=== PATIENT | female | born 1985 | race American Indian/Alaskan Native ===

== ENCOUNTER 2018-06-10 12:12 | Emergency (ER) | payer MEDICAID, OTHER ==
--- NOTE | 2018-06-10 13:10 | Emergency Department Report ---
ED Dysuria HPI - HPI Chief Complaint: Urogenital-Female Stated Complaint: WHEEZING,RUNNING EYES/NOSE Time Seen by Provider: 06/10/18 12:53 Duration: 1 Day Severity: Mild Symptoms: Dysuria: Yes, Frequency: No, Suprapubic Pain: No, Flank Pain: No, Fever: No, Hematuria: No, Abdominal Pain: No, Previous UTI's: Yes ED Review of Systems ROS: Stated complaint: WHEEZING,RUNNING EYES/NOSE Other details as noted in HPI Comment: All other systems reviewed and negative Constitutional: denies: chills, fever Eyes: denies: eye pain ENT: denies: ear pain Respiratory: denies: cough, orthopnea Cardiovascular: denies: dyspnea on exertion, orthopnea Endocrine: no symptoms reported Gastrointestinal: denies: abdominal pain, nausea, vomiting, diarrhea, constipation, hematemesis, melena Genitourinary: dysuria. denies: urgency, frequency, hematuria, discharge Musculoskeletal: denies: back pain Skin: denies: rash, lesions Neurological: denies: headache, weakness Psychiatric: denies: anxiety, depression Hematological/Lymphatic: denies: easy bleeding ED Past Medical Hx - Past Medical History Previous Medical History?: No Hx Hypertension: Yes Hx Kidney Stones: Yes Additional medical history: Childbirth - Surgical History Past Surgical History?: Yes Hx Cholecystectomy: Yes Additional Surgical History: Kidney stones removed. - Social History Smoking Status: Never Smoker - Medications Home Medications: Home Medications Medication Instructions Recorded Confirmed Last Taken Type Fluconazole [Diflucan] 150 mg PO ONCE #1 tablet 06/10/18 Unknown Rx Nitrofurantoin Monohyd/M-Cryst 100 mg PO BID #10 capsule 06/10/18 Unknown Rx [Macrobid 100 mg Capsule] Dysuria Exam - Exam General: Vital signs noted. No distress. Alert and acting appropriately. Exam: Yes Moist Mucous Membranes, No CVA Tenderness, No Abdominal Tenderness, No Rigidity or Guarding Exam: NO FEVER. TAKING PO. NO ABD PAIN. NO CVA TENDERNESS. NON TOXIC. NOT CONCERNED FOR STI. HR ON EXAM 100. PMH. OBESE. UTI ED Course Vital Signs 06/10/18 12:23 Temperature 98.2 F Pulse Rate 122 H Respiratory 18 Rate Blood Pressure 107/89 O2 Sat by Pulse 100 Oximetry - Reevaluation(s) Reevaluation #1: 09/29/18 14:21 TO ER W DYSURIA LMP 9-10 NOT CONCERNED ABOUT STD NO CVA TENDERNESS NO FEVER NO ABD PAIN U PREG NEG UA NOTED ROCEPHIN 1 GM IM DISCUSSED W PT SHE WILL NEED TO BE SURE THIS UTI CLEARS UP- NOT AND [place] SHE WILL FOLLOW UP WITH PCP. ED Medical Decision Making - Medical Decision Making UA NON TOXIC NO FEVER HR 100 ON EXAM NOT CONCERNED FOR STI - Differential Diagnosis RO UTI Critical care attestation.: If time is entered above; I have spent that time in minutes in the direct care of this critically ill patient, excluding procedure time. ED Disposition Clinical Impression: Urinary tract infection Disposition: TO HOME OR SELFCARE Is pt being admited?: No Does the pt Need Aspirin: No Condition: Stable Additional Instructions: DIET TOLERATED ACTIVITY TOLERATED HYDRATE WELL MOTRIN OR TYLENOL FOR PAIN OR FEVER FOLLOW UP WITH PCP WATER WATER WATER URINATE AFTER SEX NO BATHS Prescriptions: Fluconazole [Diflucan] 150 mg PO ONCE #1 tablet Nitrofurantoin Monohyd/M-Cryst [Macrobid 100 mg Capsule] 100 mg PO BID #10 capsule Referrals: PRIMARY CARE, [Primary Care Provider] - 3-5 Days Time of Disposition: 14:18
[2018-06-10 14:07] LABS: Bacteria,Urine 4+ /HPF (Negative); Bilirubin,Urine NEG (Negative); Blood,Urine SM (Negative); Color,Urine Yellow (Yellow); Mucus,Urine 3+ /HPF; Urobilinogen,Urine < 2.0 mg/dL (<2.0)
[2018-06-10 14:11] LABS: WBC,Urine > 182.0 /HPF (0.0-6.0)
[2018-06-10 14:12] LABS: HCG Qualitative,Urine Negative (Negative)
[2018-06-10] MEDS ORDERED: XYLOCAINE 1% MPF 5 mL INFILTRATI ONE (14:13)
[2018-06-10] MEDS ORDERED: ROCEPHIN IM ONE (14:13)
[2018-06-10 14:44] VITALS: BP 136/72
== END 2018-06-10 14:42 | disposition home or self-care (01) ==
LOC: ED 12:12
DX: N39.0 Urinary tract infection, site not specified (principal); I10 Essential (primary) hypertension; Z90.49 Acquired absence of other specified parts of digestive tract
CPT/HCPCS: 81001; 81025; 96372; 99283; J0696